=== PATIENT | female | born 1985 | race Two or more races ===

== ENCOUNTER 2023-06-06 09:15 | Emergency (ER) | payer BC, OTHER ==
[~2023-06-06] VITALS: Ht 160 cm; Wt 76.0 kg
[2023-06-06 10:19] VITALS: BP 121/74; PULSE 91; RESP 16; TEMP 98.6; O2SAT 100
[2023-06-06] MEDS ORDERED: EPINEPHrine HCL 1 MG/1 ML AMP SC ONE (11:15)
[2023-06-06] MEDS ORDERED: methylPREDNISolone SOD SUCC 125 MG/2 ML VL IM ONE (11:15)
[2023-06-06] MEDS ORDERED: METH4PAK PO (11:48)
[2023-06-06] MEDS ORDERED: TRIA0.02 TOP (11:48)
== END 2023-06-06 12:08 | disposition home or self-care (01) ==
LOC: ER 09:15
DX: T78.40XA Allergy, unspecified, initial encounter (principal); X58.XXXA Exposure to other specified factors, initial encounter
CPT/HCPCS: 96372; 99284; J0171; J2930